=== PATIENT | female | born 1990 | race Caucasian/White ===

== ENCOUNTER 2019-10-22 15:19 | Emergency (ER) | payer OTHER ==
[~2019-10-22] VITALS: Ht 170.2 cm; Wt 63.5 kg
--- NOTE | 2019-10-22 15:36 | NUR ---
Patient discharged to home in stable condition & brisk steady gait. Written and verbal after care instructions given to patient. Patient verbalized understanding & compliance of instructions.
== END 2019-10-22 15:36 | disposition home or self-care (01) ==
LOC: ER 15:22
DX: J02.8 Acute pharyngitis due to other specified organisms (principal); B97.89 Other viral agents as the cause of diseases classified elsewhere
CPT/HCPCS: A4663